=== PATIENT | male | born 1985 | race Two or more races ===

== ENCOUNTER 2024-11-28 01:05 | Emergency (ER) | payer OTHER ==
[~2024-11-28] VITALS: Ht 167.6 cm; Wt 99.8 kg
[~2024-11-28 01:05] MED LIST: AVALIDE 300-121 EACH PO; KETO10TA2 PO
[2024-11-28] MEDS ORDERED: TOPROL XL50 M1 (01:25)
[2024-11-28] MEDS ORDERED: METOCLOPRAMIDE HCL 5 MG/ML VIAL IM STA (03:34)
[2024-11-28] MEDS ORDERED: PROMETHAZINE HCL 50 MG/ML AMPUL IM STA (03:34)
[2024-11-28] MEDS ORDERED: 0.9 % SODIUM CHLORIDE 1,000 ML IV STA (03:35)
[2024-11-28] MEDS ORDERED: HYOSCYAMINE SULFATE 0.125 MG TAB.SUBL SL STA (03:36)
[2024-11-28] MEDS ORDERED: FAMOtidine 10 MG/ML (4ML VIAL) IV PUSH STA (03:36)
[2024-11-28] MEDS ORDERED: PROMETHAZINE HCL 50 MG/ML AMPUL IM ONE (03:44)
[2024-11-28] MEDS ORDERED: METOCLOPRAMIDE HCL 5 MG/ML VIAL ONE (03:44)
[2024-11-28] MEDS ORDERED: HYOSCYAMINE SULFATE 0.125 MG TAB.SUBL ONE (03:44)
[2024-11-28] MEDS ORDERED: FAMOTIDINE/PF 20 MG/2 ML VIAL ONE (03:45)
== END 2024-11-28 06:05 | disposition home or self-care (01) ==
LOC: ER 01:05
DX: K29.70 Gastritis, unspecified, without bleeding (principal); R10.13 Epigastric pain; R11.10 Vomiting, unspecified; R10.9 Unspecified abdominal pain